=== PATIENT | male | born 2000 | race Two or more races ===

== ENCOUNTER 2021-07-07 07:50 | Emergency (ER) | payer OTHER ==
[~2021-07-07] VITALS: Ht 175.3 cm; Wt 73.9 kg
== END 2021-07-07 12:01 | disposition home or self-care (01) ==
LOC: ER 07:50
DX: K29.70 Gastritis, unspecified, without bleeding (principal)

== ENCOUNTER 2022-05-08 08:03 | Outpatient (CLI) | payer OTHER | END 2022-05-08 23:00 | disposition home or self-care (01) | LOC: LAB 08:03 | PROVIDERS: ATTEND Internal Medicine Hematology & Oncology | DX: D50.8 Other iron deficiency anemias (principal); R79.9 Abnormal finding of blood chemistry, unspecified; I10 Essential (primary) hypertension; R74.02 Elevation of levels of lactic acid dehydrogenase [LDH]; K76.89 Other specified diseases of liver; D69.6 Thrombocytopenia, unspecified; D63.8 Anemia in other chronic diseases classified elsewhere; D55.0 Anemia due to glucose-6-phosphate dehydrogenase [G6PD] deficiency; D51.1 Vitamin B12 deficiency anemia due to selective vitamin B12 malabsorption with proteinuria; D51.0 Vitamin B12 deficiency anemia due to intrinsic factor deficiency; E06.3 Autoimmune thyroiditis; D72.818 Other decreased white blood cell count ==